=== PATIENT | female | born 1970 | race Caucasian/White ===

== ENCOUNTER 2021-04-29 22:16 | Emergency (ER) | payer OTHER ==
[2021-04-29] MEDS ORDERED: IBUPROFEN 600 MG TAB PO STA (23:11)
--- NOTE | 2021-04-29 23:11 | ED ---
General Adult HPI - General Chief complaint: Fever Stated complaint: COVID+,Body Aches Source: patient Mode of arrival: wheelchair - History of Present Illness Initial comments: 50-year-old female presents to the emergency department for antibody infusion. Patient states she had 2 positive Covid test at home. States today she started to get body aches all over and felt fatigued. She states about a week ago she did test negative history isn't feeling well then but has felt fine throughout the week otherwise. No shortness of breath.Patient has no other complaints at this time including shortness of breath, chest pain, abdominal pain, nausea or vomiting, headache, or visual changes. - Related Data Allergies Allergy/AdvReac Type Severity Reaction Status Date / Time No Known Allergies Allergy Verified 04/29/21 22:37 Review of Systems ROS Statement: Those systems with pertinent positive or pertinent negative responses have been documented in the HPI. ROS Other: All systems not noted in ROS Statement are negative. Past Medical History Past Medical History: Thyroid Disorder History of Any Multi-Drug Resistant Organisms: None Reported Past Surgical History: No Surgical Hx Reported Past Psychological History: No Psychological Hx Reported Smoking Status: Current every day smoker Past Alcohol Use History: Occasional Past Drug Use History: None Reported General Exam General appearance: alert, in no apparent distress Head exam: Present: atraumatic Eye exam: Present: normal appearance, PERRL, EOMI. Absent: scleral icterus, conjunctival injection ENT exam: Present: normal exam, mucous membranes moist Neck exam: Present: normal inspection, full ROM. Absent: tenderness Respiratory exam: Present: normal lung sounds bilaterally. Absent: respiratory distress, wheezes Cardiovascular Exam: Present: regular rate, normal rhythm, normal heart sounds GI/Abdominal exam: Present: soft, normal bowel sounds. Absent: distended, tenderness Course Vital Signs 04/29/21 22:33 Temperature 98.2 F Pulse Rate 109 H Respiratory 18 Rate Blood Pressure 96/55 O2 Sat by Pulse 97 Oximetry Medical Decision Making - Medical Decision Making Vitals are stable. Patient is well appearing. No respiratory distress. She did test positive for Covid 19. Patient is stable for outpatient follow-up. She will be given antibody infusion which she requests. She was monitored for an hour afterwards. She will return here for any worsening symptoms which were discussed in depth with her. - Lab Data Lab Results 04/29/21 Range/Units 22:38 Coronavirus (PCR) Detected A (Not Detectd) Disposition Clinical Impression: COVID Disposition: HOME SELF-CARE Condition: Good Instructions (If sedation given, give patient instructions): Coronavirus Disease 2019 (COVID-19) Additional Instructions: Please take Motrin and Tylenol for pain. Drink plenty of fluids. Follow-up with your doctor. Return to the emergency room for any worsening symptoms. Is patient prescribed a controlled substance at d/c from ED?: No Referrals: Nonstaff,Physician [Primary Care Provider] - 1-2 days Time of Disposition: 23:10
[2021-04-29] MEDS ORDERED: BAMLANIVIMAB (EUA) 700 MG, ETESEVIMAB (EUA) 1,400 MG in SODIUM CHLORIDE 0.9% 50 ML IVPB ONE (23:15)
[2021-04-29] MEDS ORDERED: SODIUM CHLORIDE 0.9% 50 ML IVPB ONE (23:15)
[2021-04-30 01:44] VITALS: BP 112/69; PULSE 91; RESP 17; TEMP 97.8
== END 2021-04-30 01:43 | disposition home or self-care (01) ==
LOC: EC 22:16
DX: U07.1 COVID-19 (principal); F17.200 Nicotine dependence, unspecified, uncomplicated
CPT/HCPCS: 87635; 99283; J3490